=== PATIENT | male | born 1990 | race African-American/Black ===

== ENCOUNTER 2020-07-25 20:14 | Emergency (ER) | payer MEDICAID, OTHER ==
[~2020-07-25] VITALS: Ht 177.8 cm; Wt 110.0 kg
[2020-07-25] MEDS ORDERED: ACETAMINOPHEN 650MG/20.3ML UDC PO ONE (20:45)
[2020-07-25 20:58] VITALS: BP 142/89
== END 2020-07-25 20:59 | disposition home or self-care (01) ==
LOC: ER 20:14
DX: G44.309 Post-traumatic headache, unspecified, not intractable (principal); J45.909 Unspecified asthma, uncomplicated
CPT/HCPCS: 99282